=== PATIENT | female | born 1965 | race African-American/Black ===

== ENCOUNTER 2018-12-19 14:38 | Emergency (ER) | payer OTHER ==
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
[2018-12-19 14:46] VITALS: BP 123/62
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
[2018-12-19] MEDS ORDERED: TORADOL IM ONE (16:37)
[2018-12-19] MEDS ORDERED: ZOFRAN ODT PO ONE (16:37)
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
== END 2018-12-19 17:34 | disposition home or self-care (01) ==
LOC: ED 14:38
DX: S16.1XXA Strain of muscle, fascia and tendon at neck level, initial encounter (principal); S46.912A Strain of unspecified muscle, fascia and tendon at shoulder and upper arm level, left arm, initial encounter; I10 Essential (primary) hypertension; E11.9 Type 2 diabetes mellitus without complications; V89.2XXA Person injured in unspecified motor-vehicle accident, traffic, initial encounter; Y93.89 Activity, other specified; Y92.488 Other paved roadways as the place of occurrence of the external cause; Y99.8 Other external cause status
CPT/HCPCS: 72040; 73030; 96372; 99283; J1885; Q0162

== ENCOUNTER 2019-01-13 10:09 | Emergency (ER) | payer OTHER ==
[2019-01-13] MEDS ORDERED: ANTIVERT PO ONE (10:47)
[2019-01-13] MEDS ORDERED: ZOFRAN ODT PO ONE (10:47)
[2019-01-13] MEDS ORDERED: TORADOL IM ONE (10:48)
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
[2019-01-13 14:02] VITALS: BP 146/64
== END 2019-01-13 14:01 | disposition home or self-care (01) ==
LOC: ED 10:09
DX: R51 Headache (principal); F07.81 Postconcussional syndrome; R42 Dizziness and giddiness; I10 Essential (primary) hypertension; E11.9 Type 2 diabetes mellitus without complications; Z79.899 Other long term (current) drug therapy
CPT/HCPCS: 70450; 93005; 93010; 96372; 99284; J1885; Q0162

== ENCOUNTER 2020-08-13 10:06 | Emergency (ER) | payer OTHER ==
--- NOTE | 2020-08-13 10:20 | Emergency Department Report ---
Stated Complaint: KNEE PAIN Time Seen by Provider: 08/13/20 10:19 - HPI History of Present Illness: A/C KNEE PAIN FOR YEARS Patient has not had a change of insurance so she has no doctor. She had been seen by a chiropractor. The chiropractor also would not see her because of the insurance. Patient has had no new fall or injury. - ROS Review of Systems: A/C LEFT KNEE PAIN NO NEW FALL No chest pain, no shortness of breath. No fever no chills. - Exam Vital Signs: Vital Signs 08/13/20 08/13/20 10:22 10:24 Temperature 97.8 F Pulse Rate 62 Respiratory 16 Rate Blood Pressure 150/78 O2 Sat by Pulse 97 Oximetry Physical Exam: Alert and oriented x4. Moves all extremities. Calves are nontender. Patient has bilateral knee soft splints in place. They appear very old on exam. Patient has mild swelling of the left knee especially laterally. Patient reports getting prior injections but due to insurance change she is no longer able to get them. She is reporting that her Ultram and other pain medication that she states starts with a T is not working. S1-S2 lungs clear to auscultation abdomen soft nontender MSE screening note: Focused history and physical exam performed. Due to findings the following was ordered: No life threat. Given that she has no new fall or injury there is no need for imaging. Patient and her were educated about appropriate acute on chronic pain management being done in the outpatient area. I have given them referrals to primary care as well as orthopedics. Patient has been encouraged to continue taking her home medications. And to use nonpharmacological means for her pain control. Patient discussed with doctor:: DINESH HUMPHREY ED Disposition for MSE Clinical Impression: Chronic knee pain Disposition: Z-07 MED SCREENING EXAM-LEFT Is pt being admited?: No Does the pt Need Aspirin: No Condition: Stable Instructions: Chronic Knee Pain, Adult, [id number] Additional Instructions: CONTINUE YOUR CURRENT MEDS SEE MD BELOW JUANITA Referrals: JOSEPH CHAND MD [Staff Physician] - 3-5 Days MARIETTA ANTHONY MD [Staff Physician] - 3-5 Days Time of Disposition: 10:20
[2020-08-13 10:24] VITALS: BP 150/78
== END 2020-08-13 10:20 | disposition left against medical advice (07) ==
LOC: ED 10:06
DX: M25.562 Pain in left knee (principal); Z53.21 Procedure and treatment not carried out due to patient leaving prior to being seen by health care provider

== ENCOUNTER 2020-10-07 08:11 | Outpatient (CLI) | payer MEDICARE, OTHER ==
[2020-10-07] MEDS ORDERED: SINCALIDE 5 MCG VIAL IV ONE ×2 (09:40→10:45)
--- NOTE | 2020-10-07 12:07 | Nuclear Medicine Report ---
NUCLEAR MEDICINE HEPATOBILIARY SCAN INDICATION / CLINICAL INFORMATION: UPPER ABDOMINAL PAIN. TECHNIQUE: Radiotracer: Tc-99m mebrofenin (by IV): 5.1 mCi. Gallbladder Stimulant: Cholecystokinin (in mcg by IV): 1.36. COMPARISON: None available. FINDINGS: HEPATIC ACTIVITY: Normal. BILIARY ACTIVITY: Normal. GALLBLADDER ACTIVITY: Normal. SMALL BOWEL ACTIVITY: Normal. GALLBLADDER EJECTION FRACTION % (if calculated): 73 - Normal at 30 min with Cholecystokinin: >35% PATIENT SYMPTOM REPRODUCTION: Pain/cramps following CCK administration. IMPRESSION: 1. Biliary obstruction: None. 2. Gallbladder ejection fraction: Normal. 3. Symptomatology, as above. Signer Name: Jj Arora MD Signed: 10/07/2020 12:03 PM Workstation Name: Stop Being Watched
== END 2020-10-07 08:12 | disposition home or self-care (01) ==
LOC: NM 08:11
PROVIDERS: ATTEND Student in an Organized Health Care Education/Training Program
DX: R10.13 Epigastric pain (principal); R10.10 Upper abdominal pain, unspecified
CPT/HCPCS: 78227; A9537; J2805